=== PATIENT | female | born 1990 | race Two or more races ===

== ENCOUNTER 2017-03-21 17:56 | Emergency (ER) | payer OTHER ==
[2017-03-21 18:00] VITALS: BP 116/6; PULSE 66; TEMP 98; BMI 25.4
[2017-03-21] MEDS ORDERED: NAPROXEN 500 MG TABLET (FP) PO ONE (19:14)
[2017-03-21] MEDS ORDERED: NAPROXEN 500 MG TABLET (FP) ONE (19:17)
--- NOTE | 2017-03-21 19:19 | PDOC ---
History of Present Illness - General Chief Complaint: Pain Stated Complaint: Finger pain Time Seen by Provider: 03/21/17 18:33 History Source: Patient Exam Limitations: No Limitations - History of Present Illness Initial Comments: 03/21/17 19:23 My chief complaint: Right hand pain worse since yesterday History of present illness: Patient is a 27-year-old female with no significant medical history here today complaining of worsening pain over her third metacarpal area since yesterday. Patient reports that she was trying to get her child's shoes from a shelf and felt his pains in this area. Patient reports that she has had pain of her right hand over her third metacarpal for approximately 10 days but has increased in intensity since yesterday. Patient reports that pain is a 5 out of 10 aching in nature with no movement in a 10 1 moving her right third finger or touching her right third metacarpal area. Patient has minimal swelling to the right third proximal metacarpal carpal area. Patient denies any previous injury to her hand. Patient is right hand dominant. Patient does a lot of cleaning and left her child but does not remember hitting her hands to cause injury. Denies any chance of has her menstrual cycle. Patient denies any numbness of her right hand or fingers. Occurred: reports: other (10 days ) Severity: reports: moderate Upper Extremity Pain Location: right: hand (over 3rd mcp jt worse since yesterday) Method of Injury: reports: unknown Modifying Factors: improves with: immobilization Extremity Pain Location - Extremity Pain Location Extremity Pain Locations: right: hand (over 3rd mcp jt ) Past History - Past Medical History Allergies/Adverse Reactions: Allergies Allergy/AdvReac Type Severity Reaction Status Date / Time No Known Allergies Allergy Verified 03/21/17 18:00 Home Medications: Ambulatory Orders Naproxen [Naprosyn -] 500 mg PO BID PRN #14 tablet MDD 2 03/21/17 Asthma: No Cancer: No Cardiac Disorders: No Diabetes: No HTN: No Seizures: No Thyroid Disease: No - Psycho/Social/Smoking Cessation Hx Anxiety: No Suicidal Ideation: No Smoking Status: No Smoking History: Never smoked Have you smoked in the past 12 months: No Number of Cigarettes Smoked Daily: 0 Information on smoking cessation initiated: No Hx Alcohol Use: No Drug/Substance Use Hx: No Substance Use Type: None Hx Substance Use Treatment: No Review of Systems - Review of Systems Able to Perform ROS?: Yes Constitutional: No: Symptoms Reported HEENTM: No: Symptoms Reported Respiratory: No: Symptoms reported Cardiac (ROS): No: Symptoms Reported ABD/GI: No: Symptoms Reported : No: Symptoms Reported Musculoskeletal: Yes: Joint Pain (rt. 3rd mcp jt ), Joint Swelling (minimal swelling rt. proximal mcp jt dorsal aspect) Integumentary: No: Symptoms Reported Neurological: No: Symptoms reported *Physical Exam - Vital Signs Last Vital Signs Temp Pulse Resp BP Pulse Ox 98 F 66 18 116/6 100 03/21/17 17:58 03/21/17 17:58 03/21/17 17:58 03/21/17 17:58 03/21/17 17:58 - Physical Exam General Appearance: Yes: Appropriately Dressed Comments:: 03/21/17 19:18 radial pulse 4 + rt. Extremity: positive: Normal Capillary Refill, Normal Range of Motion (minimally decreased extension at rt. 3rd mcp jt, FROM rt. 3rd DIP, PIP jt ), Tender (rt. 3rd proximal mcp jt ), Swelling (minimal swelling over rt proximal mcp ) Integumentary: positive: Normal Color, Swelling (minimal swelling over rt. proximal third mcp jt) Neurologic: positive: Normal Response (right hand over 3rd proximal mcp jt), Abnormal Cranial NS, Respond to painful stimul. negative: Numbness, Sensory Deficit (rt. hand and all digits rt. hand ) Medical Decision Making - Medical Decision Making 03/21/17 19:26 Patient is a 27-year-old female with no significant medical history here today complaining of worsening pain over her third metacarpal area since yesterday. Patient reports that she was trying to get her child's shoes from a shelf and felt his pains in this area. Patient reports that she has had pain of her right hand over her third metacarpal for approximately 10 days but has increased in intensity since yesterday. Patient reports that pain is a 5 out of 10 aching in nature with no movement in a 10 1 moving her right third finger or touching her right third metacarpal area. Patient has minimal swelling to the right third proximal metacarpal carpal area. Patient denies any previous injury to her hand. Patient is right hand dominant. Patient does a lot of cleaning and left her child but does not remember hitting her hands to cause injury. Denies any chance of has her menstrual cycle. Patient denies any numbness of her right hand or fingers. r/o bone injury rt. hand versus rt.3rd tendonitis of hand PLAN: naprosyn 500 mg po now than bid prn pain xray rt. hand *DC/Admit/Observation/Transfer Diagnosis at time of Disposition: Tendonitis of right hand - Discharge Dispostion Disposition: HOME Condition at time of disposition: Stable - Prescriptions Prescriptions: Naproxen [Naprosyn -] 500 mg PO BID PRN #14 tablet MDD 2 PRN Reason: Pain - Referrals Referrals: Ayaan Young MD [Staff Physician] - - Patient Instructions Additional Instructions: Finger splint in place an Dharmesh wrap on right hand except when bathing may take off follow up with orthopedist on 03/24/2017 for further evaluation Lifting things with your right hand as much as possible return to emergency room if any new symptoms develop or symptoms worsen Patient voiced understanding of discharge instructions and all questions were answered
== END 2017-03-21 20:21 | disposition home or self-care (01) ==
LOC: JERFT 17:56
PROC: 2W3JX1Z Immobilization of Right Finger using Splint (ICD-10-PCS; principal; 2017-03-21)
DX: M77.9 Enthesopathy, unspecified (principal)
CPT/HCPCS: 29130; 73130-TC-RT; 99281-25

== ENCOUNTER 2017-09-26 15:37 | Emergency (ER) | payer OTHER ==
[2017-09-26 15:58] VITALS: BP 113/67; PULSE 75; TEMP 98.3; BMI 25.4
--- NOTE | 2017-09-26 17:53 | PDOC ---
History of Present Illness - General Chief Complaint: Cold Symptoms Stated Complaint: EAR PAIN/COUGHING Time Seen by Provider: 09/26/17 15:56 History Source: Patient Exam Limitations: No Limitations - History of Present Illness Initial Comments: 09/26/17 17:52 27 yr female with c/o cough nasal congestion sore throat and right ear pain for one week no fever. no sick contacts. Timing/Duration: reports: getting worse Severity: reports: mild Past History - Past Medical History Allergies/Adverse Reactions: Allergies Allergy/AdvReac Type Severity Reaction Status Date / Time No Known Allergies Allergy Verified 09/26/17 15:55 Home Medications: Ambulatory Orders Amoxicillin - [Amoxicillin 875mg Tablet -] 875 mg PO BID #14 tab 09/26/17 Pseudoephedrine HCl [Sudafed] 30 mg PO BID PRN #6 tablet 09/26/17 Asthma: No Cancer: No Cardiac Disorders: No COPD: No Diabetes: No HTN: No Seizures: No Thyroid Disease: No Other medical history: DENIES. - Suicide/Smoking/Psychosocial Hx Smoking Status: No Smoking History: Never smoked Have you smoked in the past 12 months: No Number of Cigarettes Smoked Daily: 0 Hx Alcohol Use: No Drug/Substance Use Hx: No Substance Use Type: None Hx Substance Use Treatment: No Respiratory Specific PMHX - Complaint Specific PMHX Angina: No Bronchitis: No Pneumonia: No Pulmonary Embolus: No TB (Tuberculosis): No Review of Systems - Review of Systems Able to Perform ROS?: Yes Is the patient limited Irish proficient: No Constitutional: No: Symptoms Reported HEENTM: Yes: Symptoms Reported, Nose Pain, Nose Congestion, Throat Pain Respiratory: Yes: Symptoms reported, Cough *Physical Exam - Vital Signs Last Vital Signs Temp Pulse Resp BP Pulse Ox 98.3 F 75 19 113/67 97 09/26/17 15:55 09/26/17 15:55 09/26/17 15:55 09/26/17 15:55 09/26/17 15:55 - Physical Exam General Appearance: Yes: Nourished, Appropriately Dressed HEENT: positive: EOMI, ROSA, Pharynx Normal, Nasal Congestion, TM Bulging, TM Dull (left , loss of landmarks) Neck: positive: Supple. negative: Tender Respiratory/Chest: positive: Lungs Clear, Normal Breath Sounds. 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-XII NML intact, Fully Oriented, Alert, Normal Mood/ Affect, Normal Response, Motor Strength 01/17 ED Treatment Course - ADDITIONAL ORDERS Additional order review: Laboratory Results 09/26/17 16:00 Urine HCG, Qual Negative 09/26/17 16:00 Influenza Types A,B Antigen (CRISTOBAL) - Final Nasopharyngeal Swab - Final Medical Decision Making - Medical Decision Making 09/26/17 17:53 cc: cough sore throat nasal congestion *DC/Admit/Observation/Transfer Diagnosis at time of Disposition: Ear infection - Discharge Dispostion Disposition: HOME Condition at time of disposition: Good - Prescriptions Prescriptions: Amoxicillin - [Amoxicillin 875mg Tablet -] 875 mg PO BID #14 tab Pseudoephedrine HCl [Sudafed] 30 mg PO BID PRN #6 tablet PRN Reason: nasal congestion - Referrals Referrals: David Bar MD [Staff Physician] - - Patient Instructions Additional Instructions: take sudafed as directed for congestion and one hour before airplane flight take the amoxicillin as directed for 7 days for ear infection take ibuprofen 600mg as needed for fever, pain every 6hrs follow with your doctor or the ENT for follow up - Post Discharge Activity
== END 2017-09-26 18:40 | disposition home or self-care (01) ==
LOC: JERFT 15:37
DX: H66.91 Otitis media, unspecified, right ear (principal)
CPT/HCPCS: 71046-TC; 84703; 87804; 99281-25

== ENCOUNTER 2020-04-09 16:32 | Inpatient (IN) | payer OTHER ==
[2020-04-09 18:07] VITALS: BMI 31.8
[2020-04-09] MEDS ORDERED: ELECTROLYTE-148 SOLN 1,000 ML IV SCH (18:45)
[2020-04-09 19:02] LABS: BASO % 0.2 % (0-2.0); EOS % 0.5 % (0-4.5); HEMATOCRIT 35.3 % (32.4-45.2); HEMOGLOBIN 11.8 GM/dL (10.7-15.3); LYMPH % 17.2 % (8-40); MCH 32.9 pg (25.7-33.7); MCHC 33.4 g/dl (32.0-36.0); MEAN CELL VOLUME 98.4 fl (80-96); MEAN PLT VOLUME 9.7 fl (7.5-11.1); MONO % 5.3 % (3.8-10.2); NEUT % 76.8 % (42.8-82.8); PLATELET COUNT 148 K/MM3 (134-434); RBC 3.58 M/mm3 (3.60-5.2); RDW 13.8 % (11.6-15.6); WHITE BLOOD COUNT 6.9 K/mm3 (4.0-10.0)
[2020-04-09 19:10] LABS: INR 0.85 (0.83-1.09)
[2020-04-09 19:13] LABS: ACTIVATED PTT 24.2 SECONDS (25.2-36.5)
[2020-04-09 19:35] LABS: CALCIUM 8.6 mg/dL (8.5-10.1); CREATININE 0.6 mg/dL (0.55-1.3); POTASSIUM 3.7 mmol/L (3.5-5.1)
[2020-04-09] MEDS ORDERED: OXYTOCIN 20 UNITS in 0.9% NS 20 UNIT/1,000 ML INFUS.BAG IV ONE (22:22)
[2020-04-09] MEDS ORDERED: BISACODYL 10 MG SUPP.RECT RC PRN (23:13)
[2020-04-09] MEDS ORDERED: METHYLERGONOVINE MALEATE 0.2 MG/1 ML AMP IM ONE (23:13)
[2020-04-09] MEDS ORDERED: BENZOCAINE 20% 57 GM BOTTLE TP PRN (23:13)
[2020-04-09] MEDS ORDERED: BENZOCAINE 28 GM HEMORRHOIDAL OINTMENT TP PRN (23:13)
[2020-04-09] MEDS ORDERED: WITCH HAZEL 50% (TUCKS) 40 PAD/JAR PAD TP PRN (23:13)
[2020-04-09] MEDS ORDERED: OXYTOCIN 20 UNITS in 0.9% NS 20 UNIT/1,000 ML INFUS.BAG IV SCH (23:15)
--- NOTE | 2020-04-09 23:21 | HP ---
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: Alzheimer's, CVA, Dementia, Migraine, Multiple Sclerosis, Peripheral Neuropathy, Parkinson's, Seizure, Syncope, TIA, Vertigo, Other Cardiovascular: No: AFIB, Aneurysm, Aortic Insufficiency, Aortic Stenosis, CAD, CHF, Deep Vein Thrombosis, HTN, Hyperlipdemia, PR, Mitral Insufficiency, Mitral Stenosis, Murmur, Pulmonary Hypertension, Other Pulmonary: No: Asthma, Bronchitis, Cancer, COPD, O2 Dependent, Pneumonia, Previously Intubated, Pulmonary Embolus, Pulmonary Fibrosis, Sleep Apnea, Other Gastrointestinal: No: Ascites, Cancer, Constipation, Crohn's Disease, Diverticulitis, Diverticulosis, Esophageal Varices, Gastritis, GERD, GI Bleed, Hemorrhoids, Hiatal Hernia, Inflamatory Bowel Disease, Irritable Bowel Disease, Pancreatitis, Peptic Ulcer Disease, Ulcerative Colitis, Other Hepatobiliary: No: Cirrhosis, Cholelithiasis, Cholecystitis, Choledocholithiasis, Hepatitis A, Hepatitis B, Hepatitis C, Other Renal/: No: Renal Failure, Renal Inusuff, BPH, Cancer, Hematuria, Hemodialysis, Neurogenic Bladder, Renal Calculi, UTI, Other Reproductive: No: Ectopic , Endometriosis, Fibroids, PID, Polycystic Ovary Syndrome, Postmenopausal, Other ...: 5 ...Para: 4 ...Term: 4 ...: 0 ...Spon : 0 ...Induced : 0 ...Living Children: 4 ...Multiple Gestation: 0 ...LMP: 07/15/19 ... Weeks Gestation by Dates: 38.3 ...EDC by Dates: 04/20/20 ...EDC by Sono: 04/10/20 Heme/Onc: No: Anemia, B12 Deficiency, Bleeding Disorder, Cancer, Current Chemotherapy, Current Radiation Therapy, Hemochromatosis, Hypercoaguable State, Myeloproliferative Synd, Sickle Cell Disease, Sickle Cell Trait, Thrombocytopenia, Other Infectious Disease: No: AIDS, C-Diff, Herpes Zoster, HIV, MRSA, STD's, Tuberculosis, VREF, Other Psych: No: Addictions, Anxiety, Bipolar, Depression, Panic, Psychosis, Schizophrenia, Other Musculoskeletal: No: Bursitis, Chronic low back pain, Hemiparesis, Hemiplegia, Osteoarthritis, Paraplegia, Other Rheumatology: No: Fibromyalgia, Gout, Lupus, Rheumatoid Arthritis, Sarcoidosis, Vasculitis, Other ENT: No: Allergic Rhinitis, Sinusitis, Other Endocrine: No: Norlina's Disease, Marie's Disease, Diabetes Insipidus, Diabetes Mellitus, Hyperparathyroidism, Hyperthyroidism, Hypothyroidism, Osteopenia, SIADH, Other Dermatology: No: Basal Cell, Cellulitis, Eczema, Melanoma, Psoriasis, Squamous Cell, Other - Past Surgical History Past Surgical History: Yes: None Hx Myomectomy: No Hx Transabdominal Cerclage: No - Smoking History Smoking history: Never smoked Have you smoked in the past 12 months: No Aproximately how many cigarettes per day: 0 - Alcohol/Substance Use Hx Alcohol Use: No History of Substance Use: reports: None Home Medications - Allergies Allergies/Adverse Reactions: Allergies Allergy/AdvReac Type Severity Reaction Status Date / Time No Known Allergies Allergy Verified 04/09/20 17:33 - Home Medications Home Medications: Ambulatory Orders Vitamins (Sjr) - 1 tab PO DAILY 04/09/20 Family Medical History Family History: Unremarkable Review of Systems Findings/Remarks: labor pain - Review of Systems Constitutional: reports: No Symptoms Eyes: reports: No Symptoms HENT: reports: No Symptoms Neck: reports: No Symptoms Cardiovascular: reports: No Symptoms Respiratory: reports: No Symptoms Gastrointestinal: reports: No Symptoms Genitourinary: reports: No Symptoms Breasts: reports: No Symptoms Reported Musculoskeletal: reports: No Symptoms Integumentary: reports: No Symptoms Neurological: reports: No Symptoms Endocrine: reports: No Symptoms Hematology/Lymphatic: reports: No Symptoms Psychiatric: reports: No Symptoms Physical Exam - Maternity Vital Signs: Vital Signs Temperature 98.2 F 04/09/20 18:00 Pulse Rate 75 04/09/20 17:58 Respiratory Rate 72 H 04/09/20 18:00 Blood Pressure 118/65 04/09/20 18:00 O2 Sat by Pulse Oximetry (%) Constitutional: Yes: Well Nourished, No Distress HENT: Yes: Atraumatic Neck: Yes: Supple Breast(s): Yes: Other - Abdominal Exam/OB Number of Fetuses: Single Presentation: Vertex Contractions: Yes Regularity: Regular (q10 mins) Intensity: Mild/Mod Monitor Mode: External Heart Rate (range): 140 Category: I Accelerations: Uniform Decelerations: None - Vaginal Exam/OB Vaginal Bleeding: No Speculum Exam: No Dilatation (cm): 4.5 Effacement (%): 50 Presentation: Vertex/Position Station: -2 (posterior cervix) - Physical Exam Musculoskeletal: Yes: WNL Extremities: Yes: WNL Edema: Yes Edema: LLE: Trace, RLE: Trace Integumentary: Yes: WNL Deep Tendon Reflex Grade: Normal +2 ...Motor Strength: WNL Psychiatric: Yes: Alert, Oriented - Labs Lab Results: CBC, BMP 04/09/20 18:20 04/09/20 18:20 Imaging - Results Ultrasound: Report Reviewed Assessment/Plan 30 y/o @ 39.6wks, admitted in latent labor, reassuring status, patient declined AROM or augmentation, prolonged observation with expectant management and no cervical change. Patient expressed her desire for natural labor without interventions. -Expectant management
--- NOTE | 2020-04-09 23:27 | PN ---
Delivery - Delivery Type of Anesthesia: None Episiotomy/Laceration: None EBL (cc): 250 Delivery, Single - Stages of Labor Placenta: Yes: Spontaneous - Condition of Airline Stewardess/Precision Crop Manager Present: No Infant Gender: Female Position: OA (restituted to BIANCA) - [place] Feeding Plan Initial Plan: Elected not to breastfeed exclusively throughout hospitalization Remarks - Remarks Remarks: Infant's head delivered precipitously OA. It was restituted to BIANCA and no nuchal cord. Shoulders delivered without difficulty followed by rest of the body. Cord clamped and cut. handed off to waiting nurse, live viable female. Sample for blood obtained. Placenta delivered spontaneously and intact, 3 VC. Exam revealed excellent hemostasis, no lacerations, and firm fundus. Sponge/instrument count correct x 2 and confirmed by nursing. IM methergine x 1 administered prophylactically due to logistical issues with misoprostol.
[2020-04-09] MEDS ORDERED: ACETAMINOPHEN 325 MG TABLET (FP) ONE (23:32)
[2020-04-10] MEDS: ACETAMINOPHEN 325 MG TABLET (FP) PO PRN ×2 (06:31→18:07)
[2020-04-10] MEDS: IBUPROFEN 600 MG TABLET (FP) PO PRN ×2 (06:32→18:06)
--- NOTE | 2020-04-10 07:44 | PN ---
Post Progress Note - Subjective Subjective: ambulating, doing well, lochia decreased. Post Day: 1 Type of Delivery: Vital Signs: Vital Signs Temperature 98.0 F 04/10/20 05:58 Pulse Rate 54 L 04/10/20 05:58 Respiratory Rate 20 04/10/20 05:58 Blood Pressure 96/55 L 04/10/20 05:58 O2 Sat by Pulse Oximetry (%) 96 04/09/20 23:25 Uterus: Yes: Fundus Firm Incision: Yes: Other Abdomen/GI: Yes: Abdomen soft Lochia, amount: Moderate Extremities: Yes: Calves non-tender Perineum: Yes: Intact Activity: Ambulating - Labs Labs: CBC WBC 6.9 K/mm3 (4.0-10.0) 04/09/20 18:20 RBC 3.58 M/mm3 (3.60-5.2) L 04/09/20 18:20 Hgb 11.8 GM/dL (10.7-15.3) 04/09/20 18:20 Hct 35.3 % (32.4-45.2) 04/09/20 18:20 MCV 98.4 fl (80-96) H 04/09/20 18:20 MCH 32.9 pg (25.7-33.7) 04/09/20 18:20 MCHC 33.4 g/dl (32.0-36.0) 04/09/20 18:20 RDW 13.8 % (11.6-15.6) 04/09/20 18:20 Plt Count 148 K/MM3 (134-434) 04/09/20 18:20 MPV 9.7 fl (7.5-11.1) 04/09/20 18:20 Absolute Neuts (auto) 5.3 K/mm3 (1.5-8.0) 04/09/20 18:20 Neutrophils % 76.8 % (42.8-82.8) 04/09/20 18:20 Lymphocytes % 17.2 % (8-40) 04/09/20 18:20 Monocytes % 5.3 % (3.8-10.2) 04/09/20 18:20 Eosinophils % 0.5 % (0-4.5) 04/09/20 18:20 Basophils % 0.2 % (0-2.0) 04/09/20 18:20 Nucleated RBC % 0 % (0-0) 04/09/20 18:20 Assessment/Plan 30 y/o on PPD # 1 < 12hors PP, stable condition, doing well and + PPD -CXR -Continue PP care -F/U AM CBC -Anticipate D/C tomorrow morning
[2020-04-10 08:56] LABS: BASO % 0.2 % (0-2.0); EOS % 0.5 % (0-4.5); HEMATOCRIT 34.7 % (32.4-45.2); HEMOGLOBIN 11.6 GM/dL (10.7-15.3); LYMPH % 13.9 % (8-40); MCH 32.5 pg (25.7-33.7); MCHC 33.5 g/dl (32.0-36.0); MEAN CELL VOLUME 96.9 fl (80-96); MEAN PLT VOLUME 9.8 fl (7.5-11.1); MONO % 5.2 % (3.8-10.2); NEUT % 80.2 % (42.8-82.8); PLATELET COUNT 140 K/MM3 (134-434); RBC 3.58 M/mm3 (3.60-5.2); RDW 13.4 % (11.6-15.6); WHITE BLOOD COUNT 9.9 K/mm3 (4.0-10.0)
[2020-04-10] MEDS ORDERED: SENNOSIDES/DOCUSATE COMBO (SENNA PLUS) TABLET (UD) PO PRN (22:00)
--- NOTE | 2020-04-11 08:08 | DS ---
Physical Examination Vital Signs: Vital Signs Temperature 98.9 F 04/10/20 22:00 Pulse Rate 61 04/10/20 22:00 Respiratory Rate 18 04/10/20 22:00 Blood Pressure 92/36 L 04/10/20 22:00 O2 Sat by Pulse Oximetry (%) 96 04/09/20 23:25 Constitutional: Yes: Well Nourished, No Distress, Calm Eyes: Yes: WNL, Conjunctiva Clear, EOM Intact HENT: Yes: WNL, Atraumatic, Normocephalic Neck: Yes: WNL, Supple, Trachea Midline Cardiovascular: Yes: WNL, Regular Rate and Rhythm Respiratory: Yes: WNL, Regular, CTA Bilaterally Gastrointestinal: Yes: WNL, Normal Bowel Sounds Musculoskeletal: Yes: WNL Extremities: Yes: WNL Edema: No Integumentary: Yes: WNL Neurological: Yes: WNL, Alert, Oriented ...Motor Strength: WNL Psychiatric: Yes: WNL Labs: CBC, BMP 04/10/20 08:15 04/09/20 18:20 Discharge Summary Problems reviewed: Yes Reason For Visit: LABOR ADMIT Procedures: Principal: Hospital Course: Patient presented in labor She had an uncomplicated She met all milestones She was discharged home in stable condition Violeta Gore MD Condition: Stable - Instructions Diet, Activity, Other Instructions: Regular Diet Follow up in 4 weeks for your visit Referrals: Rodri Peoples MD [Staff Physician] - Disposition: HOME - Home Medications Comprehensive Discharge Medication List: Ambulatory Orders Vitamins (Sjr) - 1 tab PO DAILY 04/09/20 Breast Pump 1 each MC 5XD 30 Days #1 each 04/10/20 Ferrous Sulfate [Feosol] 325 mg PO DAILY #30 tablet 04/10/20 Ibuprofen 600 mg PO Q6H PRN #30 tablet 04/10/20
[2020-04-11 09:59] VITALS: BP 122/74; PULSE 56; TEMP 98.1
[2020-04-11] MEDS: IBUPROFEN 600 MG TABLET (FP) PO PRN (11:02)
[2020-04-11] MEDS: ACETAMINOPHEN 325 MG TABLET (FP) PO PRN (11:03)
== END 2020-04-11 14:40 | disposition home or self-care (01) | DRG 560 ==
LOC: JDEL 16:32 → JLDR 17:10 → J3W 04-10 00:20
PROVIDERS: ADMIT Student in an Organized Health Care Education/Training Program; ATTEND Student in an Organized Health Care Education/Training Program
PROC: 10E0XZZ Delivery of Products of Conception, External Approach (ICD-10-PCS; principal; 2020-04-09)
DX: O80 Encounter for full-term uncomplicated delivery (principal); Z3A.38 38 weeks gestation of pregnancy; Z37.0 Single live birth; R76.11 Nonspecific reaction to tuberculin skin test without active tuberculosis
CPT/HCPCS: 36415; 59409; 71045-TC-FY; 80048; 85025; 85610; 85730; 86780; 86850; 86900; 86901; U0003

== ENCOUNTER 2020-05-30 04:28 | Emergency (ER) | payer OTHER ==
--- OUTSIDE RECORDS SUMMARY | 2020-05-30 04:46 | XMS ---
:1990 Author Organization [facility] Support Name Relationship Address Phone UE, UNEMPLOYED Unavailable Unavailable Unavailable UE Unavailable Unavailable Unavailable ALTON MCDOWELL [address] [place] [address] ALTON MCDOWELL Spouse [address] [place] [address] Re-disclosure Warning The records that you are about to access may contain information from federally- assisted alcohol or drug abuse programs. If such information is present, then the following federally mandated warning applies: This information has been disclosed to you from records protected by federal confidentiality rules (42 CFR part 2). The federal rules prohibit you from making any further disclosure of this information unless further disclosure is expressly permitted by the written consent of the person to whom it pertains or as otherwise permitted by 42 CFR part 2. A general authorization for the release of medical or other information is NOT sufficient for this purpose. The Federal rules restrict any use of the information to criminally investigate or prosecute any alcohol or drug abuse patient.The records that you are about to access may contain highly sensitive health information, the redisclosure of which is protected by Article 27-F of the [facility] Public Health law. If you continue you may haveaccess to information: Regarding HIV / AIDS; Provided by facilities licensed or operated by the [facility] Office of Mental Health; or Provided by the [facility] Office for People With Developmental Disabilities. If such information is present, then the following [facility] mandated warning applies: This information has been disclosed to you from confidential records which are protected by state law. State law prohibits you from making any further disclosure of this information without the specific written consent of the person to whom it pertains, or as otherwise permitted by law. Any unauthorized further disclosure in violation of state law may result in a fine or retirement sentence or both. A general authorization for the release of medical or other information is NOT sufficient authorization for further disclosure. Insurance Providers Payer name Policy type Policy ID Covered Covered democrat's Policy P krissy / Coverage democrat ID relationship to Pepe Inf ormation type pepe BENNY [id number] [facility] HEALTH NON CAP Results ID Date Data Source [id number] 04/09/2020 05:55:00 PM EDT [facility] Name Value Range Interpretation Description Data Sup porting Code Source(s) Document(s ) SARS [facility] coronavirus 2 RNA This lab was ordered by [facility] and reported by [facility]. Procedure
[2020-05-30 04:48] VITALS: BP 121/79; PULSE 63; TEMP 97.9; BMI 30.1
--- NOTE | 2020-05-30 04:48 | PDOC ---
History of Present Illness - General Chief Complaint: Pain, Acute Stated Complaint: [facility] [employer] IRRITATION Time Seen by Provider: 05/30/20 04:48 History Source: Patient - History of Present Illness Initial Comments: 05/30/20 05:20 30-year-old female currently breast-feeding reports that she noticed some erythema 1 week ago on the right breast proximal to the areola at 12 o'clock position, patient reports that the redness increasingly got worse with an abscess formation. Patient was seen by her PCP yesterday and was given Bactrim for abscess. Patient reports today prior to arrival the abscess burst while she was pumping and approximately 2 cc of pus drained. Patient has some surrounding erythema is complaining of pain. Denies fever/chills. Patient reports only taking 1 dose of Bactrim thus far. Past History - Medical History Allergies/Adverse Reactions: Allergies Allergy/AdvReac Type Severity Reaction Status Date / Time No Known Allergies Allergy Verified 04/09/20 17:33 Home Medications: Ambulatory Orders Vitamins (Sj[facility]) - 1 tab PO DAILY 04/09/20 Breast Pump 1 each MC 5XD 30 Days #1 each 04/10/20 Ferrous Sulfate [Feosol] 325 mg PO DAILY #30 tablet 04/10/20 Ibuprofen 600 mg PO Q6H PRN #30 tablet 04/10/20 Asthma: No Cancer: No Cardiac Disorders: No COPD: No Diabetes: No HTN: No Seizures: No Thyroid Disease: No - Reproductive History Is Patient Now?: No (GAVE 04/09/20) - Psycho-Social/Smoking History Smoking Status: No Smoking History: Unknown if ever smoked Have you smoked in the past 12 months: No Number of Cigarettes Smoked Daily: 0 - Substance Abuse Hx (Audit-C & DAST Scrn) How often the patient has a drink containing alcohol: Never Score: In Men: 4 or > Positive; In Women: 3 or > Positive: 0 Screen Result (Pos requires Nsg. Audit-10AR): Negative In the last yr the pt used illegal drug/Rx for NonMed reason: No Score: Yes response is considered Positive: 0 Screen Result (Positive result requires Nsg. DAST-10): Negative Review of Systems - Review of Systems Able to Perform ROS?: Yes Is the patient limited Polish proficient: No Integumentary: Yes: Other (breast abscess) *Physical Exam - Vital Signs Last Vital Signs Temp Pulse Resp BP Pulse Ox 97.9 F 63 18 121/79 97 05/30/20 04:44 05/30/20 04:44 05/30/20 04:44 05/30/20 04:44 05/30/20 04:44 - Physical Exam General Appearance: Yes: Appropriately Dressed Integumentary: positive: Erythema (warm to touch), Other (right breast proximal to the areola at 12 o'clock position,abscess draining pus. with surrounding erythema. breast soft with no nodules palpated. no streaking. ) Neurologic: positive: Fully Oriented Medical Decision Making - Medical Decision Making 05/30/20 05:47 A: breast abscess P: wound culture continue bactrim prescribed by PCP close wound check and strict return precautions reviewed with patient Discharge - Discharge Information Problems reviewed: Yes Clinical Impression/Diagnosis: Breast abscess of female Condition: Fair Disposition: HOME - Follow up/Referral Referrals: Tod Kimbrough MD [Staff Physician] - Richy Kimbrough [Staff Physician] - Lizz Aguirre MD [Primary Care Provider] - 2 Days - Patient Discharge Instructions Patient Printed Discharge Instructions: DI for Skin Abscess Additional Instructions: It is important that you continue warm compress to the right breast, take warm showers and massage right breast. Continue antibiotic written by your doctor. you may apply a dry gauze to the area after washing with saline or water. You need to have a wound check within 48 hours you may either go to your primary care doctor or come back to the emergency room. Return immediately to the emergency room if the redness is spreading, streaking, fever or any worsening symptoms Print Language: BRAZILIAN - Post Discharge Activity
== END 2020-05-30 05:45 | disposition home or self-care (01) ==
LOC: JER 04:28
DX: N61.1 Abscess of the breast and nipple (principal)
CPT/HCPCS: 87070; 87186; 87205; 99283-25

== ENCOUNTER 2021-03-16 16:57 | Emergency (ER) | payer OTHER ==
[2021-03-16 17:09] VITALS: BP 102/69; PULSE 85; TEMP 98.3; BMI 23.8
[2021-03-16] MEDS ORDERED: FLUCONAZOLE 150 MG TABLET PO ONE ×2 (17:46→17:49)
== END 2021-03-16 18:08 | disposition home or self-care (01) ==
LOC: JERFT 16:57
DX: B37.3 Candidiasis of vulva and vagina (principal)
CPT/HCPCS: 87070; 87077; 87205; 99283-25

== ENCOUNTER 2021-04-22 23:28 | Emergency (ER) | payer OTHER ==
[2021-04-22 23:46] VITALS: BP 93/61; PULSE 86; TEMP 98.5; BMI 24.7
[2021-04-23] MEDS ORDERED: LIDOCAINE 5% TOPICAL PATCH TP ONE (00:59)
[2021-04-23] MEDS ORDERED: LIDOCAINE 5% TOPICAL PATCH ONE (01:07)
[2021-04-23] MEDS ORDERED: CYCLOBENZAPRINE HCL 5 MG TABLET PO ONE (01:45)
[2021-04-23] MEDS ORDERED: CYCLOBENZAPRINE HCL 10 MG TABLET (FP) ONE (02:03)
[2021-04-23] MEDS ORDERED: KETOROLAC TROMETHAMINE 30 MG/1 ML VIAL IM ONE (02:18)
[2021-04-23] MEDS ORDERED: LIDOCAINE PATCH REMOVAL MC SCH (22:00)
== END 2021-04-23 03:02 | disposition home or self-care (01) ==
LOC: JER 23:28
PROC: 3E0233Z Introduction of Anti-inflammatory into Muscle, Percutaneous Approach (ICD-10-PCS; principal; 2021-04-22)
DX: M54.5 Low back pain (principal); W01.0XXA Fall on same level from slipping, tripping and stumbling without subsequent striking against object, initial encounter
CPT/HCPCS: 36415; 84703; 99284-25